=== PATIENT | male | born 1975 | race African-American/Black ===

== ENCOUNTER 2020-04-09 11:32 | Emergency (ER) | payer MEDICAID ==
[~2020-04-09] VITALS: Ht 182.9 cm; Wt 88.2 kg
[2020-04-09 13:00] LABS: MEAN CORPUSCULAR HEMOGLOBIN 29.8 pg (27.5-34.5); MEAN CORPUSCULAR HGB CONC 32.5 g/dL (33.2-36.2); MEAN PLATELET VOLUME 7.2 fL (7.4-10.4); PLATELET COUNT 345 x10^3/uL (130-400); RED CELL DISTRIBUTION WIDTH 16.1 % (9.4-14.8)
[2020-04-09 13:06] LABS: BASOPHILS # (AUTO) 0.06 x10^3/uL (0-0.1); BASOPHILS % (AUTO) 1 % (0-1); EOSINOPHILS # (AUTO) 0.11 x10^3/uL (0-0.4); EOSINOPHILS % (AUTO) 1 % (1-7); LYMPHOCYTES # (AUTO) 3.02 x10^3/uL (1-3.4); LYMPHOCYTES % (AUTO) 38 % (22-44); MD NO; MONOCYTES # (AUTO) 0.65 x10^3/uL (0.2-0.8); MONOCYTES % (AUTO) 8 % (2-9); NEUTROPHILS # (AUTO) 4.04 x10^3/uL (1.8-6.8); NEUTROPHILS % (AUTO) 51 % (42-75)
[2020-04-09 13:09] LABS: ALANINE AMINOTRANSFERASE 29 U/L (12-78); ALBUMIN 3.4 g/dL (3.4-5.0); ANION GAP 6 mmol/L (5-15); CALCIUM 8.6 mg/dL (8.5-10.1); CHLORIDE 109 mmol/L (98-107); CREATININE 1.29 mg/dL (0.7-1.3)
[2020-04-09 13:11] LABS: ALKALINE PHOSPHATASE 66 U/L (45-117); BILIRUBIN,TOTAL 0.4 mg/dL (0.2-1.0)
--- NOTE | 2020-04-09 13:15 | NUR ---
BREAK RN FOR PRIMARY RN [place]. RECEIVED REPORT FROM TASK RN SHELLI AT THIS TIME. PT RESTING IN POSITION OF COMFORT. DENIES URGE TO USE RESTROOM, AWARE UA NEEDED. URINAL LEFT AT BEDSIDE PER PT REQUEST. VSS. CALL LIGHT IN REACH. FALL PRECAUTIONS IN PLACE. AWAITING LABS.
[2020-04-09] MEDS ORDERED: CEFTRIAXONE 250 MG ONE (14:47)
[2020-04-09] MEDS ORDERED: AZITHROMYCIN 500 MG TABLET PO ONE (15:00)
[2020-04-09] MEDS ORDERED: BICILLIN-LA 2,400,000 UNITS/4 ML IM ONE (15:00)
[2020-04-09] MEDS ORDERED: CEFTRIAXONE 250 MG IM ONE (15:00)
[2020-04-09] MEDS ORDERED: AZITHROMYCIN 500 MG TABLET ONE (15:03)
--- NOTE | 2020-04-09 15:20 | NUR ---
PT MEDICATED PER ORDERS, REMAINS ON MONITORS, VSS. WILL REASSESS.
[2020-04-09 15:25] LABS: MICROSCOPIC NOT IND
--- NOTE | 2020-04-09 15:44 | NUR ---
PT D/C'D PER ORDERS. PT VERBALIZED UNDERSTANDING OF D/C INSTRUCTIONS. PT HAS ALL OWN BELONGINGS UPON D/C.
[2020-04-09 15:45] VITALS: BP 136/79
== END 2020-04-09 15:55 | disposition home or self-care (01) ==
LOC: ED 15:43
DX: A74.9 Chlamydial infection, unspecified (principal); A51.39 Other secondary syphilis of skin
CPT/HCPCS: 36415; 80053; 81003; 85025; 86592; 86780; 87491; 87591; 87806; 96372; 99284; J0561; J0696; G0475

== ENCOUNTER 2020-04-28 02:22 | Emergency (ER) | payer MEDICAID ==
[~2020-04-28] VITALS: Ht 182.9 cm; Wt 86.4 kg
[2020-04-28 02:29] VITALS: BP 121/84
== END 2020-04-28 03:14 | disposition home or self-care (01) ==
LOC: ED 03:00
DX: F22 Delusional disorders (principal); F17.200 Nicotine dependence, unspecified, uncomplicated
CPT/HCPCS: 99281